=== PATIENT | female | born 1940 | race Caucasian/White ===

== ENCOUNTER → 2017-02-09 | Outpatient (CLI) | payer OTHER ==
[~2017-02-09] MED LIST: STATIN MED PO
== END ==
LOC: RAD 01:13
DX: Z12.31 Encounter for screening mammogram for malignant neoplasm of breast (principal)

== ENCOUNTER → 2017-02-27 | Outpatient (CLI) | payer OTHER ==
[~2017-02-27] MED LIST changes: +FLONASE 0.05%50 MCG NASAL; +IRON325 PO; +OMEPRAZOLE 20 M20 MG PO; +SIMVASTATIN10 MG PO; +[UNRECOGNIZED DRUG - REMARK] PO
[2017-02-27 11:10] VITALS: BP 142/62
== END ==
LOC: OPONC 07:36
DX: D50.9 Iron deficiency anemia, unspecified (principal)
CPT/HCPCS: 95000

== ENCOUNTER → 2017-03-02 | Outpatient (CLI) | payer OTHER ==
[2017-03-02 07:05] VITALS: BP 145/53
== END ==
LOC: OPONC 00:42
DX: D50.9 Iron deficiency anemia, unspecified (principal)
CPT/HCPCS: 95000

== ENCOUNTER → 2017-03-03 | Outpatient (CLI) | payer OTHER ==
[2017-03-03 10:00] VITALS: BP 149/75
[2017-03-03 11:29] VITALS: BP 154/79
== END ==
LOC: OPONC 02:16
DX: D50.9 Iron deficiency anemia, unspecified (principal)
CPT/HCPCS: 95000

== ENCOUNTER → 2017-03-09 | Outpatient (CLI) | payer OTHER ==
[2017-03-09 10:15] VITALS: BP 134/68
== END ==
LOC: OPONC 02:08
DX: D50.9 Iron deficiency anemia, unspecified (principal)
CPT/HCPCS: 95000

== ENCOUNTER → 2017-03-13 | Outpatient (CLI) | payer OTHER ==
[2017-03-13 09:05] VITALS: BP 125/65
[2017-03-13 10:10] VITALS: BP 140/59
== END ==
LOC: OPONC 07:31 → CATH 12:33 → OPONC 12:34
DX: D50.9 Iron deficiency anemia, unspecified (principal)
CPT/HCPCS: 95000

== ENCOUNTER → 2018-02-18 | Outpatient (CLI) | payer OTHER | LOC: RAD 01:15 | DX: Z12.31 Encounter for screening mammogram for malignant neoplasm of breast (principal) ==

== ENCOUNTER → 2019-02-22 | Outpatient (CLI) | payer OTHER | LOC: RAD 03:11 | DX: Z12.31 Encounter for screening mammogram for malignant neoplasm of breast (principal) ==

== ENCOUNTER → 2020-03-15 | Outpatient (CLI) | payer OTHER | LOC: BC 09:27 | PROVIDERS: ATTEND Internal Medicine | DX: Z12.31 Encounter for screening mammogram for malignant neoplasm of breast (principal) ==